=== PATIENT | female | born 1960 | race Caucasian/White ===

== ENCOUNTER 2021-06-09 16:20 | Inpatient (IN) | payer OTHER ==
[2021-06-09] MEDS ORDERED: LEVALBUTEROL 1.25 MG/3 ML NEB ONE (17:12)
[2021-06-09 17:32] LABS: Absolute Lymphocytes (CBC) 0.6 K/uL (0.7-4.9); Basophils % 0.5 % (0-1.3); Hematocrit 39.6 % (36.0-45.0); Lymphocytes % 12.9 % (15.3-44.8); MPV 8.9 fL (7.6-11.3); RBC Red Blood Cell Count 4.54 M/uL (3.86-4.86)
[2021-06-09 17:33] LABS: Protime INR 0.96
[2021-06-09 17:50] LABS: ALT/SGPT 23 U/L (12-78); AST/SGOT 24 U/L (15-37); Albumin 3.8 g/dL (3.4-5.0); Alkaline Phosphatase 125 U/L (45-117); BUN Blood Urea Nitrogen 11 mg/dL (7-18); Bicarbonate 28 mmol/L (21-32); Bilirubin Direct < 0.1 mg/dL (0-0.2); Bilirubin Total 0.2 mg/dL (0.2-1.0); Glucose Level 113 mg/dL (74-106); Magnesium 2.1 mg/dL (1.8-2.4); NT PRO-BNP 207 pg/mL (<125); Potassium 4.4 mmol/L (3.5-5.1); Protein, Total 7.6 g/dL (6.4-8.2); Sodium Level 142 mmol/L (136-145); Troponin (Emerg Dept Use Only) < 0.02 ng/mL (0.0-0.045)
[2021-06-09 18:20] LABS: SARS-COV-2 RT PCR NEGATIVE (NEGATIVE)
--- NOTE | 2021-06-09 19:24 | RAD REPORT ---
EXAM DESCRIPTION: CT - Chest For Pe Angio - 06/09/2021 7:12 pm CLINICAL HISTORY: Chest pain. SOB COMPARISON: No comparisons TECHNIQUE: CT angiogram of the pulmonary arteries was performed with MIP. All CT scans are performed using dose optimization technique as appropriate and may include automated exposure control or mA/KV adjustment according to patient size. FINDINGS: No evidence of pulmonary thromboembolism. No acute aortic finding demonstrated. The lungs are mildly emphysematous but clear. No significant pericardial or pleural fluid. No concerning bony finding. IMPRESSION: No evidence of pulmonary thromboembolism. Mild COPD.
--- NOTE | 2021-06-09 19:45 | ER ---
Nurse's Notes [facility] Name: Barbara Mckenzie Age: 60 yrs Sex: Female : 1960 Arrival Date: 06/09/2021 Time: 16:21 Bed 8 Private MD: Diagnosis: COPD/ Chronic obstructive pulmonary disease with (acute) exacerbation;Hypoxemia Presentation: 06/09 16:27 Chief complaint: Patient states: "I am having some shortness of breath. I have had jd3 COVID twice and I have COPD, asthma and chromic bronchitis. I feel this is more related to the allergies, but it still has gotten rough.". Coronavirus screen: cough unrelated to allergies, difficulty breathing, Client presents with at least one sign or symptom that may indicate coronavirus-19. Standard/surgical mask placed on the client. Provider contacted for isolation considerations. Ebola Screen: Patient negative for fever greater than or equal to 101.5 degrees Fahrenheit, and additional compatible Ebola Virus Disease symptoms. Initial Sepsis Screen: Does the patient meet any 2 criteria? No. Patient's initial sepsis screen is negative. Does the patient have a suspected source of infection? No. Patient's initial sepsis screen is negative. Risk Assessment: Do you want to hurt yourself or someone else? Patient reports no desire to harm self or others. Onset of symptoms was June 09, 2021. 16:27 Acuity: STEPHANIE 3 jd3 16:27 Method Of Arrival: Ambulatory jd3 16:31 Note pt reported receiving a steroid shot before coming to ER to help breath. jd3 Historical: - Allergies: 16:31 No Known Allergies; jd3 - PMHx: 16:31 COPD; Asthma; Hypertensive disorder; high cholesteral; jd3 - PSHx: 16:31 hysterectomy; left knee; jd3 - Immunization history:: Adult Immunizations up to date, Client reports receiving the 1st dose of the Covid vaccine. - Social history:: Smoking status: Patient reports the use of cigarette tobacco products, denies chronic smoking, but will smoke occasionally, Smoking status: Patient reports the use of cigarette tobacco products, smokes one-half pack cigarettes per day. Screenin:21 Abuse screen: Denies threats or abuse. Nutritional screening: No deficits noted. ch5 17:21 Tuberculosis screening: No symptoms or risk factors identified. Fall Risk None ch5 identified. Assessment: 16:55 Cardiovascular: Reports Chest tightness. Respiratory: Reports shortness of breath cough ch5 that is labored breathing Airway is compromised Respiratory effort is labored, Respiratory pattern is Breath sounds with crackles bilaterally. Breath sounds with wheezes bilaterally. 17:34 Pain: Denies pain. ch5 18:34 Reassessment: Ambulation trialto bathroom and back failed. Became SHOB and labored with ch5 O2 sat's decreasing to 84%on room air. Provider notified. Vital Signs: 16:31 BP 145 / 88; Pulse 89; Resp 22; Pulse Ox 96% on 2 lpm NC; Pain 0/10; ch5 16:32 BP 149 / 100; Pulse 99; Resp 25 S; Temp 98.8(TE); Pulse Ox 90% on R/A; Weight 81.65 kg jd3 (R); Height 5 ft. 4 in. (162.56 cm) (R); Pain 0/10; 16:32 Pulse Ox 96% on 2 lpm NC; jd3 18:34 BP 136 / 77; Pulse 105; Resp 20; Pulse Ox 98% ; Pain 0/10; ch5 16:32 Body Mass Index 30.90 (81.65 kg, 162.56 cm) jd3 ED Course: 16:21 Patient arrived in ED. am2 16:31 Triage completed. jd3 16:34 Arm band placed on. jd3 16:38 Savage Vallecillo PA is PHCP. cp 16:38 Bo Childress MD is Attending Physician. cp 16:54 Chapin Nieves, AILEEN is Primary Nurse. ch5 17:21 Patient has correct armband on for positive identification. Bed in low position. Call 5 light in reach. 17:21 Inserted saline lock: 22 gauge in left antecubital area, using aseptic technique. ch5 19:12 CT Chest For PE Angio In Process Unspecified. EDMS 19:20 LAB Add On Sent. wg 19:44 Iwona Muñoz MD is Hospitalizing Provider. cp Administered Medications: 16:50 Drug: Xopenex (levalbuterol) (3) 1.25 mg Route: Inhalation; ap3 19:55 CANCELLED (Physician Discretion): Albuterol 1.25 mg Inhalation once cp 19:55 CANCELLED (Physician Discretion): AtroVENT (ipratropium) Aerosol 0.5 mg Inhalation once cp 20:09 Drug: Albuterol 2.5 mg Route: Inhalation; cw2 20:18 Drug: SOLU-Medrol (methylPrednisoLONE) 80 mg Route: IVP; Site: left antecubital; cw2 20:18 Drug: Albuterol 2.5 mg Route: Inhalation; cw2 Outcome: 19:45 Decision to Hospitalize by Provider. cp 23:33 Patient left the ED. em 23:47 Admitted to Tele accompanied by nurse, via wheelchair, with oxygen. wg 23:47 Condition: stable Signatures: Dispatcher [employer] Julio Lopez RN RN em Savage Vallecillo PA PA cp Moreno, Amanda am2 Davies, Jonathon, RN RN jMelonie More RN RN ap3 Chapin Nieves RN RN ch5 Jj Cortes RN wg Williams, Christopher, RN RN cw2 Corrections: (The following items were deleted from the chart) 17:35 16:56 Social history: Smoking status: Patient reports the use of cigarette tobacco ch5 products, smokes one-half pack cigarettes per day, ch5
--- NOTE | 2021-06-09 19:45 | EDPHYS ---
Physician Documentation [facility] Name: Barbara Mckenzie Age: 60 yrs Sex: Female : 1960 Arrival Date: 06/09/2021 Time: 16:21 Bed 8 Private MD: ED Physician Bo Childress HPI: 06/09 16:55 This 60 yrs old Female presents to ER via Ambulatory with complaints of cp Breathing Difficulty. 16:55 The patient has shortness of breath at rest. cp 16:55 Onset: The symptoms/episode began/occurred 3 day(s) ago. cp 16:55 Duration: The symptoms are continuous, and are steadily getting worse. Associated signs cp and symptoms: Pertinent negatives: chest pain, productive cough, diaphoresis, fever, vomiting. Severity of symptoms: in the emergency department the symptoms are unchanged despite home interventions. Historical: - Allergies: 16:31 No Known Allergies; jd3 - PMHx: 16:31 COPD; Asthma; Hypertensive disorder; high cholesteral; jd3 - PSHx: 16:31 hysterectomy; left knee; jd3 - Immunization history:: Adult Immunizations up to date, Client reports receiving the 1st dose of the Covid vaccine. - Social history:: Smoking status: Patient reports the use of cigarette tobacco products, denies chronic smoking, but will smoke occasionally, Smoking status: Patient reports the use of cigarette tobacco products, smokes one-half pack cigarettes per day. ROS: 17:00 Constitutional: Negative for body aches, chills, fever, poor PO intake. cp 17:00 Eyes: Negative for injury, pain, redness, and discharge. cp 17:00 ENT: Negative for drainage from ear(s), ear pain, sore throat, difficulty swallowing, difficulty handling secretions. 17:00 Cardiovascular: Negative for chest pain, edema, palpitations. 17:00 Respiratory: Positive for cough, with no reported sputum, shortness of breath, at rest. wheezing. 17:00 Abdomen/GI: Negative for abdominal pain, nausea, vomiting, and diarrhea. 17:00 Back: Negative for radiated pain. 17:00 Neuro: Negative for altered mental status, dizziness, headache, syncope, weakness. 17:00 All other systems are negative. Exam: 17:05 Constitutional: The patient appears in no acute distress, alert, awake, cp non-diaphoretic, non-toxic, well developed, well nourished. 17:05 Head/Face: Normocephalic, atraumatic. cp 17:05 Eyes: Periorbital structures: appear normal, Conjunctiva: normal, no exudate, no injection, Sclera: no appreciated abnormality, Lids and lashes: appear normal, bilaterally. 17:05 ENT: External ear(s): are unremarkable, Ear canal(s): are normal, clear, TM's: dullness, bilaterally, Nose: is normal, Mouth: Lips: moist, Oral mucosa: pink and intact, moist, Posterior pharynx: Airway: no evidence of obstruction, patent, Tonsils: are normal in appearance, swelling, is not appreciated, erythema, is not appreciated, exudate, is not appreciated. 17:05 Neck: ROM/movement: is normal, is supple, without pain, no range of motions limitations, no meningismus. 17:05 Chest/axilla: Inspection: normal, Palpation: is normal, no crepitus, no tenderness. 17:05 Cardiovascular: Rate: normal, Rhythm: regular, Edema: is not appreciated, JVD: is not appreciated. 17:05 Respiratory: the patient does not display signs of respiratory distress, Respirations: labored breathing, that is mild, Breath sounds: decreased breath sounds, are not appreciated, stridor, is not appreciated, wheezing: that is moderate, is heard diffusely. 17:05 Abdomen/GI: Inspection: abdomen appears normal, Palpation: abdomen is soft and non-tender, in all quadrants. 17:05 Back: pain, is absent, ROM is normal. 17:05 Skin: no rash present. 17:05 Neuro: Orientation: is normal, Mentation: is normal, Motor: moves all fours, strength is normal. 19:00 ECG was reviewed by the Attending Physician. cp Vital Signs: 16:31 BP 145 / 88; Pulse 89; Resp 22; Pulse Ox 96% on 2 lpm NC; Pain 0/10; ch5 16:32 BP 149 / 100; Pulse 99; Resp 25 S; Temp 98.8(TE); Pulse Ox 90% on R/A; Weight 81.65 kg jd3 (R); Height 5 ft. 4 in. (162.56 cm) (R); Pain 0/10; 16:32 Pulse Ox 96% on 2 lpm NC; jd3 18:34 BP 136 / 77; Pulse 105; Resp 20; Pulse Ox 98% ; Pain 0/10; ch5 16:32 Body Mass Index 30.90 (81.65 kg, 162.56 cm) jd3 MDM: 16:43 Patient medically screened. 17:00 Differential diagnosis: Bronchitis CHF exacerbation, Chronic Obstructive Pulmonary cp Disease Myocardial Infarction pneumonia, pulmonary edema, Pulmonary Embolism Sepsis Unstable Angina. 19:00 Physician consultation: Marco MOTTA was contacted at 19:00, regarding admission, to the telemetry unit. patient's condition. 19:40 Data reviewed: vital signs, nurses notes, lab test result(s), EKG, radiologic studies, cp CT scan, plain films, and as a result, I will admit patient. 19:40 Test interpretation: by ED physician or midlevel provider: ECG, plain radiologic cp studies. 06/09 16:48 Order name: Basic Metabolic Panel; Complete Time: 17:52 06/09 16:48 Order name: CBC with Diff; Complete Time: 17:52 06/09 16:48 Order name: LFT's; Complete Time: 17:52 06/09 16:48 Order name: Magnesium; Complete Time: 17:52 06/09 16:48 Order name: NT PRO-BNP; Complete Time: 17:52 06/09 16:48 Order name: PT-INR; Complete Time: 17:52 06/09 16:48 Order name: Troponin (emerg Dept Use Only); Complete Time: 17:52 06/09 17:56 Order name: D-Dimer; Complete Time: 18:47 06/09 17:56 Order name: LAB Add On 06/09 18:20 Order name: COVID-19/FLU A+B; Complete Time: 18:47 EDMS 06/09 18:47 Order name: CT Chest For PE Angio; Complete Time: 19:33 06/09 19:34 Interpretation: Report reviewed. 06/09 16:48 Order name: EKG; Complete Time: 16:52 06/09 16:48 Order name: Cardiac monitoring; Complete Time: 18:25 06/09 16:48 Order name: EKG - Nurse/Tech; Complete Time: 22:10 06/09 16:48 Order name: IV Saline Lock; Complete Time: 18:25 cp 06/09 16:48 Order name: Labs collected and sent; Complete Time: 18:25 cp 06/09 16:48 Order name: O2 Per Protocol; Complete Time: 18:25 cp 06/09 16:48 Order name: O2 Sat Monitoring; Complete Time: 18:25 cp EC:00 Rate is 82 beats/min. Rhythm is regular. IN interval is normal. QRS interval is normal. cp QT interval is normal. T waves are Inverted in leads aVL, aVR. Interpreted by me. Reviewed by me. Administered Medications: 16:50 Drug: Xopenex (levalbuterol) (3) 1.25 mg Route: Inhalation; ap3 19:55 CANCELLED (Physician Discretion): Albuterol 1.25 mg Inhalation once cp 19:55 CANCELLED (Physician Discretion): AtroVENT (ipratropium) Aerosol 0.5 mg Inhalation once cp 20:09 Drug: Albuterol 2.5 mg Route: Inhalation; cw2 20:18 Drug: SOLU-Medrol (methylPrednisoLONE) 80 mg Route: IVP; Site: left antecubital; cw2 20:18 Drug: Albuterol 2.5 mg Route: Inhalation; cw2 Disposition: 06/10 07:13 Co-signature as Attending Physician, Bo Childress MD I agree with the assessment and kdr plan of care. Disposition Summary: 06/09/21 19:45 Hospitalization Ordered Hospitalization Status: Inpatient Admission cp Provider: Iwona Muñoz cp Location: Telemetry/MedSurg (Inpatient) cp Condition: Stable cp Problem: an acute exacerbation cp Symptoms: have improved cp Bed/Room Type: Standard cp Room Assignment: 225(06/09/21 22:19) tl1 Diagnosis - COPD/ Chronic obstructive pulmonary disease with (acute) exacerbation cp - Hypoxemia cp Forms: - Medication Reconciliation Form cp - SBAR form cp Signatures: Dispatcher [employer] Bo Garg MD MD kdr Munoz, Edgar RN Hoda Gonzalez RN RN tl1 Savage Vallecillo, ÁNGELA PA cp Nicola Balderrama RN RN jd3 Prokisch, Amanda, RN RN ap3 Chapin Nieves RN RN ch5 Chapin Hernandez RN RN cw2 Corrections: (The following items were deleted from the chart) 06/09 17:28 16:52 Influenza Screen (A \T\ B)+BA.LAB.BRZ ordered. EDMS EDMS 17:29 16:52 CORONAVIRUS+MR.LAB.BRZ ordered. EDMS EDMS 17:35 16:56 Social history: Smoking status: Patient reports the use of cigarette tobacco 5 products, smokes one-half pack cigarettes per day, ch5 19:55 19:52 Albuterol 1.25 mg Inhalation once ordered. em cp 19:55 19:52 AtroVENT (ipratropium) Aerosol 0.5 mg Inhalation once ordered. em cp 22:19 19:45 cp tl1
[2021-06-09] MEDS ORDERED: ALBUTEROL 2.5 MG/3 ML NEB SOL ONE ×2 (20:17→20:37)
[2021-06-09] MEDS ORDERED: IPRATROPIUM BROM 0.5MG/2.5ML ONE (20:17)
[2021-06-09] MEDS ORDERED: METHYLPREDNISOLONE 40 MG INJ ONE (20:37)
--- NOTE | 2021-06-09 20:40 | P.HP ---
Certification for Inpatient Patient admitted to: Observation With expected LOS: <2 Midnights Patient will require the following post-hospital care: None Practitioner: I am a practitioner with admitting privileges, knowledge of patient current condition, hospital course, and medical plan of care. Services: Services provided to patient in accordance with Admission requirements found in Title 42 Section 412.3 of the Code of Federal Regulations <Marco Renteria Noemy - Last Filed: 06/09/21 20:35> Patient History Date of Service: 06/09/21 Reason for admission: copd exacerbation History of Present Illness: Ms. Mckenzie is a 60 yo F with COPD, asthma, HTN, HLD, hypothyroidism who presents with two days of increased SOB. She reports dry couh, wheezing, sore throat, congestion and malaise. She has run out of her albuterol inhaler, but still has been doing breathing treatments at home. Last night after her breathing treatment she still couldn't catch her breath so she decided to come to the ED. Denies HERNANDEZ, fever, nausea, and vomiting. CXR shows mild COPD. - Past Medical/Surgical History -: asthma -: COPD -: HTN -: HLD -: hypothyroid -: hysterectomy -: knee surgery - Family History Father -: Heart disease Brother -: Lung disease Sister -: Lung disease - Social History Smoking Status: Current some day smoker Alcohol use: Yes CD- Drugs: No Caffeine use: Yes Place of Residence: Home <Maroc Renteria - Last Filed: 06/09/21 20:35> Date of Service: 06/09/21 <Iwona Muñoz - Last Filed: 06/11/21 00:04> Allergies acetaminophen [From Vicodin] Allergy (Verified 08/09/12 10:16) Itching hydrocodone bitartrate [From Vicodin] Allergy (Verified 08/09/12 10:16) Itching morphine Allergy (Verified 08/09/12 10:16) Itching Review of Systems 10-point ROS is otherwise unremarkable General: Malaise ENT: Throat Pain Respiratory: Cough, Shortness of Breath, Wheezing <Marco Renteria - Last Filed: 06/09/21 20:35> Physical Examination - Physical Exam General: Alert, In no apparent distress HEENT: Atraumatic, PERRLA, Mucous membr. moist/pink, EOMI, Sclerae nonicteric Neck: Supple, 2+ carotid pulse no bruit, No LAD, Without JVD or thyroid abnormality Respiratory: Normal air movement, Expiratory wheezes Cardiovascular: Regular rate/rhythm, Normal S1 S2 Gastrointestinal: Normal bowel sounds, No tenderness Musculoskeletal: No tenderness Integumentary: No rashes Neurological: Normal gait, Normal speech, Normal strength at 5/5 x4 extr, Normal tone, Normal affect Lymphatics: No axilla or inguinal lymphadenopathy - Studies Laboratory Data (last 24 hrs) 06/09/21 17:01: PT 11.0, INR 0.96 06/09/21 17:01: WBC 4.40, Hgb 13.2, Hct 39.6, Plt Count 353 06/09/21 17:01: Sodium 142, Potassium 4.4, BUN 11, Creatinine 0.65, Glucose 113 H, Magnesium 2.1, Total Bilirubin 0.2, AST 24, ALT 23, Alkaline Phosphatase 125 H <Marco Renteria - Last Filed: 06/09/21 20:35> Assessment and Plan - Problems (Diagnosis) (1) COPD exacerbation Current Visit: Yes Status: Acute (2) Asthma Current Visit: Yes Status: Chronic Qualifiers: Asthma severity: unspecified severity Asthma persistence: unspecified Asthma complication type: unspecified Qualified Code(s): J45.909 - Unspecified asthma, uncomplicated (3) HTN (hypertension) Current Visit: Yes Status: Chronic Qualifiers: Hypertension type: primary hypertension Qualified Code(s): I10 - Essential (primary) hypertension (4) HLD (hyperlipidemia) Current Visit: Yes Status: Chronic Qualifiers: Hyperlipidemia type: unspecified Qualified Code(s): E78.5 - Hyperlipidemia, unspecified (5) Hypothyroid Current Visit: Yes Status: Chronic Qualifiers: Hypothyroidism type: unspecified Qualified Code(s): E03.9 - Hypothyroidism, unspecified - Plan continue scheduled breathing treatments, steroids, O2 as needed continue antitussives as needed reconcile and continue home medications DVT ppx Discharge Plan: Home Plan to discharge in: 24 Hours - Advance Directives Does patient have a Living Will: No Does patient have a Durable POA for Healthcare: No - Code Status/Comfort Care Code Status Assessed: Yes (full code ) Critical Care: No Time Spent Managing Pts Care (In Minutes): 70 <Marco Renteria Noemy - Last Filed: 06/09/21 20:35> - Problems (Diagnosis) (1) COPD with acute exacerbation Current Visit: Yes Status: Acute (2) Pneumonia Current Visit: Yes Status: Acute (3) HLD (hyperlipidemia) Current Visit: Yes Status: Chronic Qualifiers: Hyperlipidemia type: unspecified Qualified Code(s): E78.5 - Hyperlipidemia, unspecified (4) HTN (hypertension) Current Visit: Yes Status: Chronic Qualifiers: Hypertension type: primary hypertension Qualified Code(s): I10 - Essential (primary) hypertension (5) Hypothyroid Current Visit: Yes Status: Chronic Qualifiers: Hypothyroidism type: unspecified Qualified Code(s): E03.9 - Hypothyroidism, unspecified <Iwona Muñoz - Last Filed: 06/11/21 00:04> Date of Service: 06/09/21 Subjective Continue with plan of care as mentioned above. Continue with current plan of care. Review of Systems 10-point ROS is otherwise unremarkable Physical Examination - Vital Signs Reviewed - Physical Exam General: Alert, In no apparent distress, Oriented x3 HEENT: Atraumatic, PERRLA, EOMI Neck: Supple, JVD not distended Respiratory: Diminished, Crackles/rales Cardiovascular: Regular rate/rhythm, Normal S1 S2, No murmurs Gastrointestinal: Normal bowel sounds, Soft and benign, Non-distended, No tenderness Musculoskeletal: No clubbing, No swelling, No tenderness Neurological: Sensation intact, Cranial nerves 3-12 intact - Studies Medications List Reviewed: Yes Assessment & Plan - Problems (Diagnosis) (1) COPD with acute exacerbation Current Visit: Yes Status: Acute (2) Pneumonia Current Visit: Yes Status: Acute (3) HLD (hyperlipidemia) Current Visit: Yes Status: Chronic Qualifiers: Hyperlipidemia type: unspecified Qualified Code(s): E78.5 - Hyperlipidemia, unspecified (4) HTN (hypertension) Current Visit: Yes Status: Chronic Qualifiers: Hypertension type: primary hypertension Qualified Code(s): I10 - Essential (primary) hypertension (5) Hypothyroid Current Visit: Yes Status: Chronic Qualifiers: Hypothyroidism type: unspecified Qualified Code(s): E03.9 - Hypothyroidism, unspecified - Plan Plan: 1. Continue with albuterol and Atrovent nebs 2. Continue with IV steroids 3. Consult Pulmonary if patient symptoms are not improving 4. Continue with IV antibiotic therapy 5. Room air O2 sats; continue O2 per protocol 6. Repeat chest x-ray in the morning 7. Outpatient pulmonary function testing 8. GI and DVT prophylaxis Discharge Plan: Home Plan to discharge in: Greater than 2 days - Advance Directives Does patient have a Living Will: No Does patient have a Durable POA for Healthcare: No - Code Status/Comfort Care Code Status Assessed: Yes Code Status: Full Code Critical Care: No Time Spent Managing PTS Care (In Minutes): 45 <Iwona Muñoz - Last Filed: 06/11/21 00:04>
[2021-06-09 22:34] VITALS: BMI 30.6
[2021-06-09] MEDS: SERTRALINE HCL 50 MG TAB PO SCH (22:39)
[2021-06-09] MEDS ORDERED: ONDANSETRON 4 MG/2 ML VIAL IV PRN (22:39)
[2021-06-09] MEDS ORDERED: hydrOXYzine HCL 25 MG TAB PO PRN (22:39)
[2021-06-09] MEDS: BENZONATATE 100 MG CAP PO PRN (22:39)
[2021-06-09] MEDS ORDERED: HYDRALAZINE HCL 20 MG/ML VIAL IV PRN (22:39)
[2021-06-09] MEDS: LOSARTAN POTASSIUM 50 MG TABLET PO SCH (22:39)
[2021-06-09] MEDS ORDERED: ATORVASTATIN 10 MG TAB PO SCH (22:39)
[2021-06-09] MEDS ORDERED: FAMOTIDINE 20 MG TAB ONE (22:55)
[2021-06-09] MEDS ORDERED: predniSONE 20 MG TAB ONE (22:55)
[2021-06-09] MEDS: ALBUTEROL 2.5 MG/3 ML NEB SOL NEB SCH (23:15)
[2021-06-09] MEDS: LEVALBUTEROL 1.25 MG/3 ML NEB NEB SCH (23:15)
[2021-06-09] MEDS: IPRATROPIUM BROM 0.5MG/2.5ML NEB SCH (23:15)
[2021-06-10] MEDS: LEVALBUTEROL 1.25 MG/3 ML NEB NEB SCH ×4 (02:00→19:30)
[2021-06-10] MEDS: IPRATROPIUM BROM 0.5MG/2.5ML NEB SCH ×4 (02:33→19:30)
[2021-06-10] MEDS: ALBUTEROL 2.5 MG/3 ML NEB SOL NEB SCH (02:33)
[2021-06-10 04:58] LABS: Absolute Lymphocytes (CBC) 0.6 K/uL (0.7-4.9); Basophils % 0.6 % (0-1.3); Lymphocytes % 9.6 % (15.3-44.8)
[2021-06-10 05:14] LABS: ALT/SGPT 21 U/L (12-78); AST/SGOT 15 U/L (15-37); Albumin 3.6 g/dL (3.4-5.0); Alkaline Phosphatase 106 U/L (45-117); BUN Blood Urea Nitrogen 12 mg/dL (7-18); Bicarbonate 28 mmol/L (21-32); Bilirubin Total 0.3 mg/dL (0.2-1.0); Glucose Level 181 mg/dL (74-106); Magnesium 2.1 mg/dL (1.8-2.4); Phosphorus 2.8 mg/dL (2.5-4.9); Protein, Total 7.1 g/dL (6.4-8.2); Sodium Level 142 mmol/L (136-145)
[2021-06-10] MEDS ORDERED: METHYLPREDNISOLONE 125 MG INJ IV ONE (06:45)
[2021-06-10] MEDS ORDERED: METHYLPREDNISOLONE 125 MG INJ ONE (07:13)
[2021-06-10] MEDS: BENZONATATE 100 MG CAP PO PRN (07:22)
[2021-06-10 07:43] LABS: Urine Appearance CLEAR (Clear); Urine Bilirubin NEGATIVE (Negative); Urine Blood NEGATIVE (Negative); Urine Color YELLOW (Yellow); Urine Glucose 1+ (Negative); Urine Protein NEGATIVE (Negative); Urine Specific Gravity 1.015 (1.005-1.030); Urine Urobilinogen 0.2 mg/dL (0.2-1.0); Urine pH 6.5 (5.0-7.0)
[2021-06-10 07:44] LABS: Urine Microscopic Reflex NO UMIC
[2021-06-10] MEDS ORDERED: PNEUMOCOCCAL VACCINE 0.5 ML IMVAC ONE (08:00)
[2021-06-10] MEDS: ENOXAPARIN 40 MG/0.4 ML SQ SCH (08:47)
[2021-06-10] MEDS: LOSARTAN POTASSIUM 50 MG TABLET PO SCH (08:47)
[2021-06-10] MEDS ORDERED: predniSONE 20 MG TAB PO SCH (09:00)
[2021-06-10] MEDS ORDERED: clonazePAM 0.5 MG TAB PO ONE (19:00)
[2021-06-10] MEDS ORDERED: ACETAMINOPHEN 500 MG TAB PO ONE (19:00)
[2021-06-10] MEDS: hydrOXYzine HCL 25 MG TAB PO SCH (19:48)
[2021-06-10] MEDS: METHYLPREDNISOLONE 125 MG INJ IV SCH (19:48)
[2021-06-10] MEDS: ATORVASTATIN 10 MG TAB PO SCH (19:49)
[2021-06-10] MEDS: SERTRALINE HCL 50 MG TAB PO SCH (19:49)
[2021-06-10] MEDS ORDERED: clonazePAM 0.5 MG TAB PO SCH (21:00)
[2021-06-10] MEDS ORDERED: HOME MED 1 EA UNK (Hydroxyzine Hcl [Atarax] 50 MG Tablet) PO SCH (21:00)
[2021-06-10] MEDS ORDERED: HOME MED 1 EA UNK (Pravastatin Sodium [Pravastatin Sodium] 20 MG Tablet) PO SCH (21:00)
[2021-06-10] MEDS: HOME MED 1 EA UNK (Fluticasone/Salmeterol [Advair 250-50 Diskus] Blst.W.Dev) IH SCH (21:00)
--- NOTE | 2021-06-11 00:02 | P.PN ---
Subjective Date of Service: 06/10/21 Patient feeling better. Still with coughing & congestion. Patient's oxygenation has improved. However, chest x-ray is slightly worsened. Labs remained stable. Review of Systems 10-point ROS is otherwise unremarkable Physical Examination - Vital Signs Temperature: 97.9 F Blood Pressure: 120/68 Pulse: 89 Respirations: 18 Pulse Ox (%): 94 - Physical Exam General: Alert, In no apparent distress, Oriented x3 HEENT: Atraumatic, PERRLA, EOMI Neck: Supple, JVD not distended Respiratory: Diminished, Crackles/rales Cardiovascular: Regular rate/rhythm, Normal S1 S2, No murmurs Gastrointestinal: Normal bowel sounds, Soft and benign, Non-distended, No tenderness Musculoskeletal: No clubbing, No swelling, No tenderness Neurological: Sensation intact, Cranial nerves 3-12 intact - Studies Medications List Reviewed: Yes Assessment & Plan - Problems (Diagnosis) (1) COPD with acute exacerbation Current Visit: Yes Status: Acute (2) Pneumonia Current Visit: Yes Status: Acute (3) HLD (hyperlipidemia) Current Visit: Yes Status: Chronic Qualifiers: Hyperlipidemia type: unspecified Qualified Code(s): E78.5 - Hyperlipidemia, unspecified (4) HTN (hypertension) Current Visit: Yes Status: Chronic Qualifiers: Hypertension type: primary hypertension Qualified Code(s): I10 - Essential (primary) hypertension (5) Hypothyroid Current Visit: Yes Status: Chronic Qualifiers: Hypothyroidism type: unspecified Qualified Code(s): E03.9 - Hypothyroidism, unspecified - Plan Plan: 1. Continue with albuterol and Atrovent nebs 2. Continue with IV steroids 3. Consult Pulmonary 4. Continue with IV antibiotic therapy 5. Room air O2 sats; continue O2 per protocol 6. Repeat chest x-ray in the morning 7. Outpatient pulmonary function testing 8. GI and DVT prophylaxis Discharge Plan: Home Plan to discharge in: Greater than 2 days - Advance Directives Does patient have a Living Will: No Does patient have a Durable POA for Healthcare: No - Code Status/Comfort Care Code Status Assessed: Yes Code Status: Full Code Critical Care: No Time Spent Managing PTS Care (In Minutes): 45
[2021-06-11] MEDS: METHYLPREDNISOLONE 125 MG INJ IV SCH ×2 (00:03→05:38)
[2021-06-11] MEDS: LEVALBUTEROL 1.25 MG/3 ML NEB NEB SCH ×4 (01:10→19:45)
[2021-06-11] MEDS: IPRATROPIUM BROM 0.5MG/2.5ML NEB SCH ×4 (01:10→19:45)
[2021-06-11] MEDS: LEVOTHYROXINE SOD 0.075 MG TAB PO SCH (05:38)
[2021-06-11 06:36] LABS: Absolute Lymphocytes (CBC) 0.8 K/uL (0.7-4.9); Hematocrit 38.4 % (36.0-45.0); Lymphocytes % 4.5 % (15.3-44.8); MPV 8.6 fL (7.6-11.3); RBC Red Blood Cell Count 4.33 M/uL (3.86-4.86)
[2021-06-11 07:08] LABS: ALT/SGPT 22 U/L (12-78); AST/SGOT 14 U/L (15-37); Albumin 3.4 g/dL (3.4-5.0); Alkaline Phosphatase 100 U/L (45-117); BUN Blood Urea Nitrogen 20 mg/dL (7-18); Bicarbonate 31 mmol/L (21-32); Bilirubin Total 0.4 mg/dL (0.2-1.0); Glucose Level 157 mg/dL (74-106); Magnesium 2.4 mg/dL (1.8-2.4); NT PRO-BNP 157 pg/mL (<125); Potassium 4.5 mmol/L (3.5-5.1); Protein, Total 6.9 g/dL (6.4-8.2); Sodium Level 142 mmol/L (136-145)
[2021-06-11 08:51] LABS: Blood Morphology Comment NOT SEEN (NOT SEEN); Platelet Estimate ADEQ; White Blood Cell Scan OK (OK)
[2021-06-11] MEDS ORDERED: HOME MED 1 EA UNK (Levothyroxine Sodium [Levothyroxine] 150 MCG Capsule) PO SCH (09:00)
[2021-06-11] MEDS ORDERED: HOME MED 1 EA UNK (Losartan Potassium [Cozaar] 25 MG Tablet) PO SCH (09:00)
[2021-06-11] MEDS: HOME MED 1 EA UNK (Fluticasone/Salmeterol [Advair 250-50 Diskus] Blst.W.Dev) IH SCH (09:00)
[2021-06-11] MEDS: ENOXAPARIN 40 MG/0.4 ML SQ SCH (10:04)
[2021-06-11] MEDS: SERTRALINE HCL 100 MG TAB PO SCH (10:04)
[2021-06-11] MEDS: LOSARTAN POTASSIUM 50 MG TABLET PO SCH (10:04)
--- NOTE | 2021-06-11 10:05 | RAD REPORT ---
EXAM DESCRIPTION: RAD - Chest Single View - 06/11/2021 7:03 am CLINICAL HISTORY: pneumonia Chest pain. COMPARISON: Chest Pa And Lat (2 Views) dated 06/09/2021; CHEST PA AND LAT 2 VIEW dated 08/09/2012 FINDINGS: Portable technique limits examination quality. Small calcified granuloma are present both lungs, unchanged. Mild interstitial prominence is seen sonja aterally likely representing underlying viral infection or bronchitis. The heart upper normal size. N o displaced fractures.
--- NOTE | 2021-06-11 11:11 | P.CNS ---
Date of Consult: 06/11/21 Reason for Consult: COPD exacerbation Chief Complaint: copd exacerbation History of Present Illness: Patient is 60 years of age patient is 60 years of age with a history of obstructive airways disease resented with 2-day history of increasing shortness of breath chest congestion dry cough wheezing malaise currently she ran out of her albuterol inhaler cannot afford any long-acting bronchodilators feeling a little better she works around chemicals Allergies acetaminophen [From Vicodin] Allergy (Verified 08/09/12 10:16) Itching hydrocodone bitartrate [From Vicodin] Allergy (Verified 08/09/12 10:16) Itching morphine Allergy (Verified 08/09/12 10:16) Itching Home Medications: Albuterol Neb [Proventil 0.083% Neb Soln] 2 puff DAILY 06/10/21 Fluticasone/Salmeterol [Advair 250-50 Diskus] 1 puff DAILY 06/10/21 Levothyroxine Sodium [Levothyroxine] 1 tab PO DAILY 06/10/21 Losartan Potassium [Cozaar] 25 mg PO DAILY 06/10/21 Pravastatin Sodium 20 mg PO BEDTIME 06/10/21 Sertraline [Zoloft] 100 mg PO DAILY 06/10/21 hydrOXYzine HCL [Atarax] 50 mg PO BEDTIME 06/10/21 - Past Medical/Surgical History -: asthma -: COPD -: HTN -: HLD -: hypothyroid -: hysterectomy -: knee surgery - Family History Father Medical History: Heart disease Brother Medical History: Lung disease Sister Medical History: Lung disease - Social History Smoking Status: Current every day smoker, Current some day smoker Alcohol use: Yes CD- Drugs: No Caffeine use: Yes Place of Residence: Home Review of Systems General: Weakness Respiratory: Cough, Shortness of Breath Physical Examination Temp Pulse Resp BP Pulse Ox 98.3 F 91 H 21 H 136/76 94 06/11/21 08:00 06/11/21 08:00 06/11/21 08:00 06/11/21 08:00 06/11/21 08:00 General: Alert, In no apparent distress, Oriented x3 Respiratory: Expiratory wheezes Cardiovascular: No edema, Regular rate/rhythm Gastrointestinal: Normal bowel sounds, Soft and benign - Problems (1) COPD exacerbation Current Visit: Yes Status: Acute Plan: Patient is 60 years of age with underlying presumed obstructive airways disease apparently she saw me years ago and had unremarkable pulmonary function testing cannot afford long-acting bronchodilators ran out of her albuterol inhaler has been sick for the past few days patient's labs were unremarkable patient has had Covid x2 vital signs stable she is titrate sat to 90% also check room air pulse ox chest x-ray is clear chest x-ray shows some COPD changes CAT scan no evidence of pneumonia or pulmonary embolism
[2021-06-11] MEDS: DULERA 200/5 (MOMETASONE/FORMOTEROL) INHALER IH SCH ×2 (12:56→21:26)
--- NOTE | 2021-06-11 17:35 | P.PN ---
Subjective Date of Service: 06/11/21 Chief Complaint: copd exacerbation Subjective: Improving Review of Systems Respiratory: Shortness of Breath Physical Examination - Vital Signs Temperature: 98.6 F Blood Pressure: 108/60 Pulse: 87 Respirations: 24 Pulse Ox (%): 97 - Physical Exam General: Alert, In no apparent distress HEENT: Atraumatic, PERRLA, EOMI Neck: Supple, JVD not distended Respiratory: Inspiratory wheezes Cardiovascular: Regular rate/rhythm, Normal S1 S2 Gastrointestinal: Normal bowel sounds, No tenderness Musculoskeletal: No tenderness Integumentary: No rashes Neurological: Normal speech, Normal tone, Normal affect Lymphatics: No axilla or inguinal lymphadenopathy - Studies Medications List Reviewed: Yes Assessment & Plan - Problems (Diagnosis) (1) COPD exacerbation Current Visit: Yes Status: Acute Plan: will continue weaning her down off her oxygen. Continue streroids and breathing (2) HTN (hypertension) Current Visit: Yes Status: Chronic Plan: continue her home bp meds Adjust as necessary. Qualifiers: Hypertension type: primary hypertension Qualified Code(s): I10 - Essential (primary) hypertension (3) Hypothyroid Current Visit: Yes Status: Chronic Plan: check tsh Qualifiers: Hypothyroidism type: unspecified Qualified Code(s): E03.9 - Hypothyroidism, unspecified Discharge Plan: Home Plan to discharge in: 24 Hours - Code Status/Comfort Care Code Status Assessed: No Physician Review: Patient Assessed, Agree with Above Assessment and Plan Critical Care: No Time Spent Managing Pts Care (In Minutes): 20
[2021-06-11] MEDS: hydrOXYzine HCL 25 MG TAB PO SCH (21:27)
[2021-06-11] MEDS: SERTRALINE HCL 50 MG TAB PO SCH (21:27)
[2021-06-11] MEDS: ATORVASTATIN 10 MG TAB PO SCH (21:27)
[2021-06-11] MEDS: predniSONE 20 MG TAB PO SCH (21:27)
[2021-06-12] MEDS: LEVALBUTEROL 1.25 MG/3 ML NEB NEB SCH ×3 (01:50→14:08)
[2021-06-12] MEDS: IPRATROPIUM BROM 0.5MG/2.5ML NEB SCH ×3 (01:50→14:08)
[2021-06-12] MEDS: LEVOTHYROXINE SOD 0.075 MG TAB PO SCH (06:43)
[2021-06-12] MEDS: LOSARTAN POTASSIUM 50 MG TABLET PO SCH (08:41)
[2021-06-12] MEDS: DULERA 200/5 (MOMETASONE/FORMOTEROL) INHALER IH SCH (08:41)
[2021-06-12] MEDS: ENOXAPARIN 40 MG/0.4 ML SQ SCH (08:41)
[2021-06-12] MEDS: SERTRALINE HCL 100 MG TAB PO SCH (08:41)
[2021-06-12] MEDS: predniSONE 20 MG TAB PO SCH (08:41)
[2021-06-12 13:22] VITALS: BP 129/80; TEMP 98.4
[2021-06-12 15:01] VITALS: O2SAT 94
--- NOTE | 2021-06-12 15:59 | P.DS ---
Admission Date: 06/09/21 Discharge Date: 06/12/21 Disposition: ROUTINE DISCHARGE Discharge Condition: GOOD Reason for Admission: copd exacerbation - Problems (1) COPD exacerbation Current Visit: Yes Status: Acute (2) HTN (hypertension) Current Visit: Yes Status: Chronic Qualifiers: Hypertension type: primary hypertension Qualified Code(s): I10 - Essential (primary) hypertension (3) Hypothyroid Current Visit: Yes Status: Chronic Qualifiers: Hypothyroidism type: unspecified Qualified Code(s): E03.9 - Hypothyroidism, unspecified Brief History of Present Illness: Patient admitted for copd exacerbation. She was out of her inhalers due to lack of insurance Hospital Course: Patient resting comfortable in her room without oxygen. She is doing well. Will discharge her home with a steroid taper. Follow up with her pcp. Vital Signs/Physical Exam: Temp Pulse Resp BP Pulse Ox 98.4 F 78 20 129/80 99 06/12/21 12:00 06/12/21 12:00 06/12/21 12:00 06/12/21 12:00 06/12/21 12:00 General: Alert, In no apparent distress HEENT: Atraumatic, PERRLA, EOMI Neck: Supple, JVD not distended Respiratory: Clear to auscultation bilaterally, Normal air movement Cardiovascular: Regular rate/rhythm, Normal S1 S2 Gastrointestinal: Normal bowel sounds, No tenderness Musculoskeletal: No tenderness Integumentary: No rashes Neurological: Normal speech, Normal tone, Normal affect Lymphatics: No axilla or inguinal lymphadenopathy Laboratory Data at Discharge: WBC 18.60 K/uL (4.3-10.9) H D 06/11/21 06:17 Hgb 12.4 g/dL (12.0-15.0) 06/11/21 06:17 Hct 38.4 % (36.0-45.0) 06/11/21 06:17 Plt Count 356 K/uL (152-406) 06/11/21 06:17 PT 11.0 SECONDS (9.5-12.5) 06/09/21 17:01 INR 0.96 06/09/21 17:01 Sodium 142 mmol/L (136-145) 06/11/21 06:17 Potassium 4.5 mmol/L (3.5-5.1) 06/11/21 06:17 BUN 20 mg/dL (7-18) H 06/11/21 06:17 Creatinine 0.56 mg/dL (0.55-1.3) 06/11/21 06:17 Glucose 157 mg/dL (74-106) H 06/11/21 06:17 Phosphorus 2.8 mg/dL (2.5-4.9) 06/10/21 04:18 Magnesium 2.4 mg/dL (1.8-2.4) 06/11/21 06:17 Total Bilirubin 0.4 mg/dL (0.2-1.0) 06/11/21 06:17 AST 14 U/L (15-37) L 06/11/21 06:17 ALT 22 U/L (12-78) 06/11/21 06:17 Alkaline Phosphatase 100 U/L (45-117) 06/11/21 06:17 Home Medications: Fluticasone/Salmeterol [Advair 250-50 Diskus] 1 puff DAILY 06/10/21 Levothyroxine Sodium [Levothyroxine] 1 tab PO DAILY 06/10/21 Losartan Potassium [Cozaar] 25 mg PO DAILY 06/10/21 RX: Albuterol Neb [Proventil 0.083% Neb Soln] 2 puff DAILY 06/10/21 RX: Pravastatin Sodium 20 mg PO BEDTIME 06/10/21 Sertraline [Zoloft] 100 mg PO DAILY 06/10/21 hydrOXYzine HCL [Atarax] 50 mg PO BEDTIME 06/10/21 Mometasone/Formoterol [Dulera 100 Mcg/5 Mcg Inhaler] 2 puff IH BID #1 inhaler 06/11/21 predniSONE [Deltasone] 20 mg PO BID 7 Days #14 tab 06/11/21 New Medications: Mometasone/Formoterol [Dulera 100 Mcg/5 Mcg Inhaler] 2 puff IH BID #1 inhaler predniSONE [Deltasone] 20 mg PO BID 7 Days #14 tab Diet: Regular Activity: Ad gerson Followup: Luz Hernandez [employer] [Primary Care Provider] - Physician Review: Patient Assessed, Agree with Above Assessment and Plan Time spent managing pt's care (in minutes): 25
== END 2021-06-12 17:51 | disposition home or self-care (01) | DRG 190 ==
LOC: ER 16:20 → ERHOLD 19:55 → 2ND 22:28
PROVIDERS: ADMIT Hospitalist; ATTEND Internal Medicine
DX: J44.0 Chronic obstructive pulmonary disease with (acute) lower respiratory infection (principal); J18.9 Pneumonia, unspecified organism; J44.1 Chronic obstructive pulmonary disease with (acute) exacerbation; I10 Essential (primary) hypertension; E78.5 Hyperlipidemia, unspecified; E03.9 Hypothyroidism, unspecified; F17.200 Nicotine dependence, unspecified, uncomplicated
CPT/HCPCS: 0240U; 36415; 71045; 71046; 71275; 80048; 80053; 80076; 81003; 83735; 83880; 84100; 84145; 84484; 85025; 85379; 85610; 93005; 94002; 94760; 96374; 99285; J1650; J2920; J2930; J7512; J7606; Q9967

== ENCOUNTER 2023-05-11 06:31 | Day surgery (SDC) | payer OTHER ==
[2023-05-09 12:18] LABS: Potassium 3.7 mEq/L (3.5-5.1)
--- NOTE | 2023-05-10 12:40 | EKG ---
Test Date: 2023-05-09 Test Time: 11:50:02 [employer] P[employer] Operator: NANCY MEASUREMENT RESULTS: Intervals: Rate: 62 [place]: 174 QRSD: 96 QT: 446 QTc: 452 [place]: P: 78 [place]: 174 QRS: 91 T: 82 INTERPRETIVE STATEMENTS: Normal sinus rhythm Right atrial enlargement Rightward axis Borderline ECG Compared to ECG 05/09/2023 11:49:27 No significant changes Electronically Signed On 05-10-23 12:37:23 CDT by Genaro Yousif
[2023-05-11] MEDS: Ringers Lactate 1,000 ML IV ONE ×2 (06:59→07:00)
[2023-05-11] MEDS ORDERED: propofoL 200 MG/20 ML VIAL IV ONE ×2 (08:08→08:30)
[2023-05-11] MEDS ORDERED: LIDOCAINE 1% MPF 5 ML VIAL ONE (08:08)
[2023-05-11] MEDS ORDERED: NA CHLORIDE 0.9% 1,000 ML ONE (08:45)
[2023-05-11 09:04] VITALS: BP 109/75; TEMP 97.5; O2SAT 97
== END 2023-05-11 09:10 | disposition home or self-care (01) ==
LOC: OR 06:31
PROVIDERS: ATTEND Surgery
PROC: 0DBN8ZX Excision of Sigmoid Colon, Via Natural or Artificial Opening Endoscopic, Diagnostic (ICD-10-PCS; 2023-05-11)
PROC: 0DBH8ZX Excision of Cecum, Via Natural or Artificial Opening Endoscopic, Diagnostic (ICD-10-PCS; principal; 2023-05-11 08:00)
DX: R19.5 Other fecal abnormalities (principal); E03.9 Hypothyroidism, unspecified; J45.909 Unspecified asthma, uncomplicated; D12.7 Benign neoplasm of rectosigmoid junction; K64.8 Other hemorrhoids; K64.4 Residual hemorrhoidal skin tags
CPT/HCPCS: 93005; 80048; 36415; 88305; 45385; J2704 ×2; J2001; J7120; J7030